=== PATIENT | female | born 1930 | race Caucasian/White ===

== ENCOUNTER 2016-08-14 10:54 | Emergency (ER) | payer MEDICARE ==
[2016-08-14 11:02] VITALS: RESP 18
--- NOTE | 2016-08-14 11:29 | ED ---
Fever HPI - General Chief Complaint: Fever Stated Complaint: Flu like Symtoms/Diareah Time Seen by Provider: 08/14/16 11:04 Source: patient, RN notes reviewed Mode of arrival: EMS Limitations: no limitations - History of Present Illness Initial Comments: This patient is an 85-year-old woman sent in to be evaluated for fever and diarrhea. The patient states that this morning she had an episode of very watery diarrhea. She also had an episode 2 days ago. She is denying nausea, vomiting, abdominal pain. Patient is also denying any other symptoms, and states that she is feeling okay. At the moment she denies feeling fever or chills. MD Complaint: fever Onset/Timin -: hour(s) Temperature Source: subjective - Related Data Home Medications Medication Instructions Recorded Confirmed Carbidopa-Levodopa 25-100 mg 1 tab PO QID 10/26/14 08/14/16 [Sinemet 25-100] Primidone [Mysoline] 50 mg PO TID@0800,1300,1800 10/26/14 08/14/16 Acetaminophen Tab [Tylenol Tab] 325 mg PO Q6H PRN 08/14/16 08/14/16 Atenolol [Tenormin] 25 mg PO DAILY 08/14/16 08/14/16 Cholecalciferol [Vitamin D3] 2,000 unit PO DAILY 08/14/16 08/14/16 Ciprofloxacin HCl [Cipro] 500 mg PO Q12HR 08/14/16 08/14/16 Cyanocobalamin [Vitamin B-12] 1,000 mcg PO DAILY 08/14/16 08/14/16 Desonide [Desowen] 1 applic TOPICAL HS PRN 08/14/16 08/14/16 FLUoxetine HCL [PROzac] 80 mg PO HS 08/14/16 08/14/16 LORazepam [Ativan] 0.25 mg PO BID PRN 08/14/16 08/14/16 Omeprazole 20 mg PO BID 08/14/16 08/14/16 Potassium Chloride [Klor-Con 20] 20 meq PO DAILY 08/14/16 08/14/16 busPIRone HCL [Buspar] 7.5 mg PO BID 08/14/16 08/14/16 Previous Rx's Medication Instructions Recorded Oseltamivir [Tamiflu] 75 mg PO Q12HR #10 cap 08/14/16 Allergies Allergy/AdvReac Type Severity Reaction Status Date / Time Penicillins Allergy Rash/Hives Verified 08/14/16 11:02 Review of Systems ROS Statement: Those systems with pertinent positive or pertinent negative responses have been documented in the HPI. ROS Other: All systems not noted in ROS Statement are negative. Constitutional: Reports: as per HPI, fever. Denies: chills Respiratory: Denies: cough, dyspnea Cardiovascular: Denies: chest pain, orthopnea, syncope Gastrointestinal: Reports: diarrhea. Denies: abdominal pain, nausea, vomiting, constipation, melena, hematochezia Genitourinary: Denies: dysuria Musculoskeletal: Denies: back pain Skin: Denies: rash Neurological: Denies: headache Past Medical History Past Medical History: GERD/Reflux, Hypertension, Neurologic Disorder Additional Past Medical History / Comment(s): PARKINSON'S, ULCER, [place] & [place] History of Any Multi-Drug Resistant Organisms: MRSA Date of last positivie culture/infection: 03/28/15 MDRO Source:: Abdomen Past Surgical History: Hysterectomy Additional Past Surgical History / Comment(s): GOITER REMOVED, BASAL CELL CANCER REMOVED FROM MOUTH ON TUESDAY Past Anesthesia/Blood Transfusion Reactions: No Reported Reaction Past Psychological History: Anxiety, Depression Smoking Status: Former smoker Past Alcohol Use History: None Reported Past Drug Use History: None Reported General Exam Limitations: no limitations General appearance: alert, in no apparent distress Head exam: Present: atraumatic, normocephalic Eye exam: Present: normal appearance. Absent: scleral icterus, conjunctival injection ENT exam: Present: mucous membranes dry Neck exam: Present: normal inspection, full ROM. Absent: meningismus Respiratory exam: Present: normal lung sounds bilaterally. Absent: respiratory distress, wheezes, rales, rhonchi, stridor Cardiovascular Exam: Present: regular rate, normal rhythm, normal heart sounds. Absent: systolic murmur, diastolic murmur, rubs, gallop GI/Abdominal exam: Present: soft. Absent: distended, tenderness, guarding, rebound, mass Extremities exam: Present: normal inspection, normal capillary refill. Absent: pedal edema, calf tenderness Neurological exam: Present: alert Skin exam: Present: warm, dry, intact, normal color. Absent: rash Course Vital Signs 08/14/16 08/14/16 10:58 13:26 Temperature 100.4 F H 98.6 F Pulse Rate 81 75 Respiratory 18 18 Rate Blood Pressure 189/100 154/72 O2 Sat by Pulse 98 99 Oximetry Medical Decision Making - Medical Decision Making Patient is an 85-year-old woman with fever, found to have influenza. At this point her course appears uncomplicated and she is stable for outpatient care. The patient does have close care at the [facility] home, and will return should there be any change in her status. - Lab Data Result diagrams: 08/14/16 11:00 08/14/16 11:00 Lab Results 08/14/16 08/14/16 08/14/16 Range/Units 11:00 11:00 11:00 WBC 4.7 (3.8-10.6) k/uL RBC 4.07 (3.80-5.40) m/uL Hgb 11.5 (11.4-16.0) gm/dL Hct 35.6 (34.0-46.0) % MCV 87.3 (80.0-100.0) fL MCH 28.2 (25.0-35.0) pg MCHC 32.3 (31.0-37.0) g/dL RDW 12.9 (11.5-15.5) % Plt Count 224 (150-450) k/uL Neutrophils % 70 % Lymphocytes % 18 % Monocytes % 8 % Eosinophils % 0 % Basophils % 0 % Neutrophils # 3.3 (1.3-7.7) k/uL Lymphocytes # 0.8 L (1.0-4.8) k/uL Monocytes # 0.4 (0-1.0) k/uL Eosinophils # 0.0 (0-0.7) k/uL Basophils # 0.0 (0-0.2) k/uL PT (9.0-12.0) sec INR (<1.1) APTT (22.0-30.0) sec Sodium 139 (137-145) mmol/L Potassium 3.6 (3.5-5.1) mmol/L Chloride 103 (98-107) mmol/L Carbon Dioxide 26 (22-30) mmol/L Anion Gap 10 mmol/L BUN 18 H (7-17) mg/dL Creatinine 0.50 L (0.52-1.04) mg/dL Est GFR (MDRD) Af Amer >60 (>60 ml/min/1.73 sqM) Est GFR (MDRD) Non-Af >60 (>60 ml/min/1.73 sqM) Glucose 93 (74-99) mg/dL Plasma Lactic Acid Manuel (0.7-2.0) mmol/L Calcium 8.1 L (8.4-10.2) mg/dL Total Bilirubin 0.3 (0.2-1.3) mg/dL AST 84 H (14-36) U/L ALT 90 H (9-52) U/L Alkaline Phosphatase 100 (38-126) U/L Total Creatine Kinase 113 (30-135) U/L CK-MB (CK-2) 0.8 (0.0-2.4) ng/mL CK-MB (CK-2) Rel Index 0.7 Troponin I <0.012 (0.000-0.034) ng/mL Total Protein 6.5 (6.3-8.2) g/dL Albumin 3.7 (3.5-5.0) g/dL Cortisol 18 ug/dL Urine Color Urine Appearance (Clear) Urine pH (5.0-8.0) Ur Specific [place] (1.001-1.035) Urine Protein (Negative) Urine Glucose (UA) (Negative) Urine Ketones (Negative) Urine Blood (Negative) Urine Nitrate (Negative) Urine Bilirubin (Negative) Urine Urobilinogen (<2.0) mg/dL Ur Leukocyte Esterase (Negative) Influenza Type A RNA (Not Detectd) Influenza Type B (PCR) (Not Detectd) 08/14/16 08/14/16 08/14/16 Range/Units 11:00 11:00 11:00 WBC (3.8-10.6) k/uL RBC (3.80-5.40) m/uL Hgb (11.4-16.0) gm/dL Hct (34.0-46.0) % MCV (80.0-100.0) fL MCH (25.0-35.0) pg MCHC (31.0-37.0) g/dL RDW (11.5-15.5) % Plt Count (150-450) k/uL Neutrophils % % Lymphocytes % % Monocytes % % Eosinophils % % Basophils % % Neutrophils # (1.3-7.7) k/uL Lymphocytes # (1.0-4.8) k/uL Monocytes # (0-1.0) k/uL Eosinophils # (0-0.7) k/uL Basophils # (0-0.2) k/uL PT 10.3 (9.0-12.0) sec INR 1.0 (<1.1) APTT 24.0 (22.0-30.0) sec Sodium (137-145) mmol/L Potassium (3.5-5.1) mmol/L Chloride (98-107) mmol/L Carbon Dioxide (22-30) mmol/L Anion Gap mmol/L BUN (7-17) mg/dL Creatinine (0.52-1.04) mg/dL Est GFR (MDRD) Af Amer (>60 ml/min/1.73 sqM) Est GFR (MDRD) Non-Af (>60 ml/min/1.73 sqM) Glucose (74-99) mg/dL Plasma Lactic Acid Manuel 1.2 (0.7-2.0) mmol/L Calcium (8.4-10.2) mg/dL Total Bilirubin (0.2-1.3) mg/dL AST (14-36) U/L ALT (9-52) U/L Alkaline Phosphatase (38-126) U/L Total Creatine Kinase (30-135) U/L CK-MB (CK-2) (0.0-2.4) ng/mL CK-MB (CK-2) Rel Index Troponin I (0.000-0.034) ng/mL Total Protein (6.3-8.2) g/dL Albumin (3.5-5.0) g/dL Cortisol ug/dL Urine Color Urine Appearance (Clear) Urine pH (5.0-8.0) Ur Specific [place] (1.001-1.035) Urine Protein (Negative) Urine Glucose (UA) (Negative) Urine Ketones (Negative) Urine Blood (Negative) Urine Nitrate (Negative) Urine Bilirubin (Negative) Urine Urobilinogen (<2.0) mg/dL Ur Leukocyte Esterase (Negative) Influenza Type A RNA Detected H (Not Detectd) Influenza Type B (PCR) Not Detected (Not Detectd) 08/14/16 Range/Units 11:00 WBC (3.8-10.6) k/uL RBC (3.80-5.40) m/uL Hgb (11.4-16.0) gm/dL Hct (34.0-46.0) % MCV (80.0-100.0) fL MCH (25.0-35.0) pg MCHC (31.0-37.0) g/dL RDW (11.5-15.5) % Plt Count (150-450) k/uL Neutrophils % % Lymphocytes % % Monocytes % % Eosinophils % % Basophils % % Neutrophils # (1.3-7.7) k/uL Lymphocytes # (1.0-4.8) k/uL Monocytes # (0-1.0) k/uL Eosinophils # (0-0.7) k/uL Basophils # (0-0.2) k/uL PT (9.0-12.0) sec INR (<1.1) APTT (22.0-30.0) sec Sodium (137-145) mmol/L Potassium (3.5-5.1) mmol/L Chloride (98-107) mmol/L Carbon Dioxide (22-30) mmol/L Anion Gap mmol/L BUN (7-17) mg/dL Creatinine (0.52-1.04) mg/dL Est GFR (MDRD) Af Amer (>60 ml/min/1.73 sqM) Est GFR (MDRD) Non-Af (>60 ml/min/1.73 sqM) Glucose (74-99) mg/dL Plasma Lactic Acid Manuel (0.7-2.0) mmol/L Calcium (8.4-10.2) mg/dL Total Bilirubin (0.2-1.3) mg/dL AST (14-36) U/L ALT (9-52) U/L Alkaline Phosphatase (38-126) U/L Total Creatine Kinase (30-135) U/L CK-MB (CK-2) (0.0-2.4) ng/mL CK-MB (CK-2) Rel Index Troponin I (0.000-0.034) ng/mL Total Protein (6.3-8.2) g/dL Albumin (3.5-5.0) g/dL Cortisol ug/dL Urine Color Yellow Urine Appearance Clear (Clear) Urine pH 6.0 (5.0-8.0) Ur Specific [place] 1.015 (1.001-1.035) Urine Protein Trace H (Negative) Urine Glucose (UA) Negative (Negative) Urine Ketones Negative (Negative) Urine Blood Negative (Negative) Urine Nitrate Negative (Negative) Urine Bilirubin Negative (Negative) Urine Urobilinogen <2.0 (<2.0) mg/dL Ur Leukocyte Esterase Negative (Negative) Influenza Type A RNA (Not Detectd) Influenza Type B (PCR) (Not Detectd) - EKG Data -: EKG Interpreted by Vt EKG shows normal: axis (Normal), intervals (Normal) Rate: normal Interpretation: nonspecific ST-T wave changes, other (The underlying rhythm appears to be atrial fibrillation with a rate approximately 85 bpm) Disposition Clinical Impression: Influenza Disposition: HOME SELF-CARE Condition: Fair Instructions: Fever in Adults (ED), Influenza (ED) Prescriptions: Oseltamivir [Tamiflu] 75 mg PO Q12HR #10 cap Referrals: Zackery Martinez MD [Primary Care Provider] - 1-2 days
[2016-08-14 11:36] LABS: Basophils % (A) 0 %; CH 28.4; CHCM 32.6; Eosinophils % (A) 0 %; HCT 35.6 % (34.0-46.0); HDW 2.59; HGB 11.5 gm/dL (11.4-16.0); Luc # (Auto) 0.18; Luc % (Auto) 4; Lymphocytes # (A) 0.8 k/uL (1.0-4.8); Lymphocytes % (A) 18 %; MCH 28.2 pg (25.0-35.0); MCHC 32.3 g/dL (31.0-37.0); MCV 87.3 fL (80.0-100.0); Mean Platelet Volume 6.6; Monocytes # (A) 0.4 k/uL (0-1.0); Monocytes % (A) 8 %; Neutrophils # (A) 3.3 k/uL (1.3-7.7); Neutrophils % (A) 70 %; RBC 4.07 m/uL (3.80-5.40); RDW 12.9 % (11.5-15.5); WBC 4.7 k/uL (3.8-10.6); WBC (Perox) 4.74
[2016-08-14 11:37] LABS: Appearance,Urine Clear (Clear); Bilirubin,Urine Negative (Negative); Glucose,Urine (UA) Negative (Negative); Ketones,Urine Negative (Negative); Leukocyte Esterase,Urine Negative (Negative); Nitrite,Urine Negative (Negative); Protein,Urine Trace (Negative); Specific Gravity,Urine 1.015 (1.001-1.035); UA Billing (MACRO vs. MICRO) CHEM; Urobilinogen,Urine <2.0 mg/dL (<2.0)
[2016-08-14 11:52] LABS: Prothrombin Time 10.3 sec (9.0-12.0)
[2016-08-14 11:56] LABS: ALT 90 U/L (9-52); AST 84 U/L (14-36); Alkaline Phosphatase 100 U/L (38-126); Anion Gap 10 mmol/L; Blood Urea Nitrogen 18 mg/dL (7-17); Calcium 8.1 mg/dL (8.4-10.2); Carbon Dioxide 26 mmol/L (22-30); Chloride 103 mmol/L (98-107); Glucose 93 mg/dL (74-99); Non-African American GFR(MDRD) >60 (>60 ml/min/1.73 sqM); Potassium 3.6 mmol/L (3.5-5.1); Sodium 139 mmol/L (137-145); Total Bilirubin 0.3 mg/dL (0.2-1.3); Total Protein 6.5 g/dL (6.3-8.2)
[2016-08-14 12:08] LABS: Creatine Kinase 113 U/L (30-135)
--- NOTE | 2016-08-14 12:13 | XR ---
EXAMINATION TYPE: XR chest 1V portable DATE OF EXAM: 08/14/2016 12:07 PM COMPARISON: 10/31/2015 HISTORY: Fever TECHNIQUE: Single frontal view of the chest is obtained. FINDINGS: The heart is enlarged. There is no evidence of focal pneumonia. Pleural calcifications are noted. Atherosclerotic change aorta. Underlying COPD suspected. IMPRESSION: 1. Cardiomegaly and COPD with no definite acute process.
[2016-08-14 12:21] LABS: Creatine Kinase MB 0.8 ng/mL (0.0-2.4); Troponin I <0.012 ng/mL (0.000-0.034)
[2016-08-14] MEDS ORDERED: OSELTAMIVIR 75 MG CAP PO STA (13:16)
[2016-08-14] MEDS ORDERED: ACETAMINOPHEN TAB 325 MG TAB PO STA (13:16)
[2016-08-14 13:27] VITALS: BP 154/72; PULSE 75; TEMP 98.6
== END 2016-08-14 13:30 | disposition home or self-care (01) ==
LOC: EC 10:54
DX: J11.1 Influenza due to unidentified influenza virus with other respiratory manifestations (principal); G20 Parkinson's disease; I10 Essential (primary) hypertension; K21.9 Gastro-esophageal reflux disease without esophagitis; F41.9 Anxiety disorder, unspecified; F32.9 Major depressive disorder, single episode, unspecified; Z86.14 Personal history of Methicillin resistant Staphylococcus aureus infection; Z79.899 Other long term (current) drug therapy; Z88.0 Allergy status to penicillin; Z87.891 Personal history of nicotine dependence
CPT/HCPCS: 36415; 71010; 80053; 81003; 82533; 82550; 82553; 83605; 84484; 85025; 85610; 85730; 87040; 87086; 87502; 93005; 99284

== ENCOUNTER 2016-11-12 23:00 | Inpatient (IN) | payer MEDICARE ==
[2016-11-12 23:36] LABS: Basophils % (A) 0 %; CH 26.5; Eosinophils % (A) 0 %; HCT 29.3 % (34.0-46.0); HDW 2.76; HGB 9.1 gm/dL (11.4-16.0); Hypochromasia Slight; Luc # (Auto) 0.11; Luc % (Auto) 1; Lymphocytes # (A) 0.4 k/uL (1.0-4.8); Lymphocytes % (A) 3 %; MCH 26.6 pg (25.0-35.0); MCHC 30.9 g/dL (31.0-37.0); Mean Platelet Volume 6.6; Monocytes # (A) 0.7 k/uL (0-1.0); Monocytes % (A) 5 %; Neutrophils # (A) 11.9 k/uL (1.3-7.7); Neutrophils % (A) 91 %; RBC 3.41 m/uL (3.80-5.40); RDW 15.8 % (11.5-15.5); WBC 13.1 k/uL (3.8-10.6); WBC (Perox) 13.09
[2016-11-12 23:46] LABS: ALT 38 U/L (9-52); AST 151 U/L (14-36); Alkaline Phosphatase 121 U/L (38-126); Anion Gap 12 mmol/L; Blood Urea Nitrogen 38 mg/dL (7-17); Calcium 8.4 mg/dL (8.4-10.2); Carbon Dioxide 20 mmol/L (22-30); Chloride 107 mmol/L (98-107); Glucose 153 mg/dL (74-99); Non-African American GFR(MDRD) >60 (>60 ml/min/1.73 sqM); Potassium 4.3 mmol/L (3.5-5.1); Sodium 139 mmol/L (137-145); Total Bilirubin 0.6 mg/dL (0.2-1.3); Total Protein 6.3 g/dL (6.3-8.2)
[2016-11-13] LABS: VBG PH 7.35 (7.31-7.41)
--- NOTE | 2016-11-13 00:03 | XR ---
EXAM: XR Chest, 1 View CLINICAL HISTORY: Dyspnea. TECHNIQUE: Frontal view of the chest. COMPARISON: CXR dated 08/14/2016. FINDINGS: Lungs: Extensive patchy bilateral airspace opacities, new compared to prior CXR. Calcifications of the lung apices, stable. Pleural space: Blunting of the left costophrenic angle may represent small left pleural effusion. No pneumothorax. Heart: Mildly enlarged cardiac silhouette. Mediastinum: Atherosclerosis at the aortic arch. Bones/joints: Stable osseous structures. IMPRESSION: 1. Bilateral airspace opacities, new compared to prior CXR. Findings may represent pulmonary edema, multifocal pneumonia, ARDS or other etiology. Recommend clinical correlation and follow-up imaging. 2. Mildly enlarged cardiac silhouette. 3. Possible small left pleural effusion.
[2016-11-13 00:10] LABS: INR 1.2 (<1.1); Prothrombin Time 11.7 sec (9.0-12.0)
[2016-11-13 00:31] LABS: Appearance,Urine Clear (Clear); Bilirubin,Urine Negative (Negative); Glucose,Urine (UA) Negative (Negative); Ketones,Urine 1+ (Negative); Leukocyte Esterase,Urine Negative (Negative); Nitrite,Urine Negative (Negative); Particle Count 4079; Protein,Urine 1+ (Negative); RBC,Urine 1 /hpf (0-5); Specific Gravity,Urine 1.022 (1.001-1.035); Squamous Epithelial Cell,Urine <1 /hpf (0-4); UA Billing (MACRO vs. MICRO) MICRO; Urobilinogen,Urine <2.0 mg/dL (<2.0); WBC,Urine 1 /hpf (0-5)
[2016-11-13] MEDS ORDERED: LEVOFLOXACIN 750MG-D5W PMX 750 MG in DEXTROSE/WATER 1 150ML.BAG IVPB STA (01:24)
[2016-11-13] MEDS ORDERED: MORPHINE SULFATE 4 MG/ML SYRINGE IV STA ×2 (01:40→04:15)
[2016-11-13] MEDS ORDERED: NITROGLYCERIN-D5W PMX 50 MG in DEXTROSE/WATER 1 250ML.BAG IV STA (01:44)
[2016-11-13] MEDS ORDERED: FUROSEMIDE 10 MG/ML 4 ML VIAL IV STA (04:36)
[2016-11-13] MEDS ORDERED: NITROGLYCERIN-D5W PMX 50 MG in DEXTROSE/WATER 1 250ML.BAG IV ONE (04:43)
[2016-11-13] MEDS ORDERED: NALOXONE 0.4 MG/ML 1 ML VIAL IV PRN (04:57)
[2016-11-13] MEDS ORDERED: MORPHINE SULFATE 4 MG/ML SYRINGE IV PRN (04:57)
--- NOTE | 2016-11-13 04:57 | ED ---
SOB HPI - General Chief Complaint: Shortness of Breath Stated Complaint: ELBERT Time Seen by Provider: 11/12/16 23:03 Source: EMS Mode of arrival: EMS Limitations: altered mental status, physical limitation - History of Present Illness Initial Comments: This patient is an 85-year-old woman brought from [facility] home to be evaluated for dyspnea. EMS states they were called to the home and informed that the patient was having shortness of breath due to being treated for urinary tract infection. This is been getting worse over the course of tonight. On arrival he patient is not able to provide much history due to dyspnea. She was able to state that she was not having any pains. MD Complaint: shortness of breath -: unknown Consistency: constant Improves With: nothing Worsens With: nothing Treatments Prior to Arrival: oxygen, NIPPV - Related Data Home Medications Medication Instructions Recorded Confirmed Carbidopa-Levodopa 25-100 mg 1 tab PO QID 10/26/14 11/12/16 [Sinemet 25-100] Primidone [Mysoline] 50 mg PO TID@0800,1300,1800 10/26/14 11/12/16 Acetaminophen Tab [Tylenol Tab] 325 mg PO Q6H PRN 08/14/16 11/12/16 Atenolol [Tenormin] 25 mg PO DAILY 08/14/16 11/12/16 Cholecalciferol [Vitamin D3] 2,000 unit PO DAILY 08/14/16 11/12/16 FLUoxetine HCL [PROzac] 80 mg PO HS 08/14/16 11/12/16 Omeprazole 20 mg PO BID@0800,1800 08/14/16 11/12/16 Potassium Chloride [Klor-Con 20] 20 meq PO DAILY 08/14/16 11/12/16 busPIRone HCL [Buspar] 7.5 mg PO BID@0800,1800 08/14/16 11/12/16 Cyanocobalamin (Vitamin B-12) 1,000 mcg PO DAILY 11/12/16 11/12/16 [Vitamin B-12] Allergies Allergy/AdvReac Type Severity Reaction Status Date / Time Penicillins Allergy Rash/Hives Verified 08/14/16 11:02 Review of Systems ROS Statement: Those systems with pertinent positive or pertinent negative responses have been documented in the HPI. ROS Other: All systems not noted in ROS Statement are negative. Limitations: ROS unobtainable due to patients medical condition Respiratory: Reports: dyspnea Cardiovascular: Denies: chest pain Gastrointestinal: Denies: abdominal pain Past Medical History Past Medical History: GERD/Reflux, Hypertension, Neurologic Disorder Additional Past Medical History / Comment(s): PARKINSON'S, ULCER, [place] History of Any Multi-Drug Resistant Organisms: MRSA Date of last positivie culture/infection: 03/28/15 MDRO Source:: Abdomen Past Surgical History: Hysterectomy Additional Past Surgical History / Comment(s): GOITER REMOVED, BASAL CELL CANCER REMOVED FROM MOUTH ON TUESDAY Past Anesthesia/Blood Transfusion Reactions: No Reported Reaction Past Psychological History: Anxiety, Depression Smoking Status: Former smoker Past Alcohol Use History: None Reported Past Drug Use History: None Reported - Past Family History Mother Family Medical History: No Reported History General Exam Limitations: no limitations General appearance: alert, in distress Head exam: Present: atraumatic, normocephalic Eye exam: Present: normal appearance. Absent: scleral icterus, conjunctival injection Neck exam: Present: full ROM Respiratory exam: Present: respiratory distress, rales, rhonchi, accessory muscle use. Absent: wheezes, stridor, decreased breath sounds Cardiovascular Exam: Present: regular rate, normal rhythm, systolic murmur. Absent: diastolic murmur, rubs, gallop GI/Abdominal exam: Present: soft. Absent: tenderness, guarding, rebound Extremities exam: Present: normal inspection, normal capillary refill. Absent: pedal edema, calf tenderness Back exam: Present: normal inspection. Absent: CVA tenderness (R), CVA tenderness (L) Neurological exam: Present: alert Psychiatric exam: Present: anxious Skin exam: Present: warm, intact, diaphoretic, mottled. Absent: rash Course Vital Signs 11/12/16 11/13/16 11/13/16 23:03 00:06 00:16 Temperature 97.2 F L 97.2 F L Pulse Rate 93 92 87 Respiratory 40 H 38 H 40 H Rate Blood Pressure 160/83 186/100 187/91 O2 Sat by Pulse 100 96 95 Oximetry 11/13/16 11/13/16 11/13/16 01:14 01:48 01:58 Temperature Pulse Rate 88 93 85 Respiratory 48 H 45 H 45 H Rate Blood Pressure 184/89 163/90 158/73 O2 Sat by Pulse 92 L 93 L 92 L Oximetry 11/13/16 11/13/16 11/13/16 02:35 03:28 04:30 Temperature Pulse Rate 89 93 95 Respiratory 40 H 45 H 40 H Rate Blood Pressure 176/82 176/97 175/81 O2 Sat by Pulse 92 L 92 L 92 L Oximetry 11/13/16 11/13/16 11/13/16 05:11 05:27 05:35 Temperature Pulse Rate 92 98 96 Respiratory 40 H 40 H 40 H Rate Blood Pressure 173/77 175/75 141/72 O2 Sat by Pulse 90 L 90 L 91 L Oximetry 11/13/16 11/13/16 11/13/16 05:39 05:43 05:47 Temperature Pulse Rate 94 94 94 Respiratory 40 H 40 H 40 H Rate Blood Pressure 143/79 134/79 136/79 O2 Sat by Pulse 93 L 93 L 91 L Oximetry 11/13/16 11/13/16 05:51 06:13 Temperature Pulse Rate 98 97 Respiratory 40 H 40 H Rate Blood Pressure 145/87 139/64 O2 Sat by Pulse 89 L 95 Oximetry Medical Decision Making - Medical Decision Making Patient is an 85-year-old woman brought from [facility] home for severe respiratory distress. The patient is coming by paperwork that state that she is basically a no code with the exception that she would want pressor drugs. On arrival the patient does appear to be in respiratory distress bordering on respiratory failure, and if she had full CODE STATUS would have been intubated on arrival. She is changed over from the CPAP brought by EMS to the BiPAP here, and the sats did improve from 70s up to just over 90. From auscultation of the chest x- ray, it appears the patient is in hypertensive emergency with CHF. Patient is given nitroglycerin which has improved blood pressure. Patient also started on antibiotics as it's not possible to exclude pneumonia based on the appearance of the chest x-ray. Patient does have lactic acidosis on arrival. - Lab Data Result diagrams: 11/12/16 23:23 11/12/16 23:23 Lab Results 11/12/16 11/12/16 11/12/16 Range/Units 23:23 23:23 23:23 WBC 13.1 H (3.8-10.6) k/uL RBC 3.41 L (3.80-5.40) m/uL Hgb 9.1 L (11.4-16.0) gm/dL Hct 29.3 L (34.0-46.0) % MCV 86.0 (80.0-100.0) fL MCH 26.6 (25.0-35.0) pg MCHC 30.9 L (31.0-37.0) g/dL RDW 15.8 H (11.5-15.5) % Plt Count 361 (150-450) k/uL Neutrophils % 91 % Lymphocytes % 3 % Monocytes % 5 % Eosinophils % 0 % Basophils % 0 % Neutrophils # 11.9 H (1.3-7.7) k/uL Lymphocytes # 0.4 L (1.0-4.8) k/uL Monocytes # 0.7 (0-1.0) k/uL Eosinophils # 0.0 (0-0.7) k/uL Basophils # 0.0 (0-0.2) k/uL Hypochromasia Slight PT (9.0-12.0) sec INR (<1.1) APTT (22.0-30.0) sec VBG pH (7.31-7.41) VBG pCO2 (37-51) mmHg VBG HCO3 (24-28) mmol/L Sodium 139 (137-145) mmol/L Potassium 4.3 (3.5-5.1) mmol/L Chloride 107 (98-107) mmol/L Carbon Dioxide 20 L (22-30) mmol/L Anion Gap 12 mmol/L BUN 38 H (7-17) mg/dL Creatinine 0.60 (0.52-1.04) mg/dL Est GFR (MDRD) Af Amer >60 (>60 ml/min/1.73 sqM) Est GFR (MDRD) Non-Af >60 (>60 ml/min/1.73 sqM) Glucose 153 H (74-99) mg/dL Plasma Lactic Acid Manuel 3.1 H* (0.7-2.0) mmol/L Calcium 8.4 (8.4-10.2) mg/dL Total Bilirubin 0.6 (0.2-1.3) mg/dL AST 151 H (14-36) U/L ALT 38 (9-52) U/L Alkaline Phosphatase 121 (38-126) U/L Troponin I (0.000-0.034) ng/mL Total Protein 6.3 (6.3-8.2) g/dL Albumin 3.3 L (3.5-5.0) g/dL Urine Color Urine Appearance (Clear) Urine pH (5.0-8.0) Ur Specific [place] (1.001-1.035) Urine Protein (Negative) Urine Glucose (UA) (Negative) Urine Ketones (Negative) Urine Blood (Negative) Urine Nitrite (Negative) Urine Bilirubin (Negative) Urine Urobilinogen (<2.0) mg/dL Ur Leukocyte Esterase (Negative) Urine RBC (0-5) /hpf Urine WBC (0-5) /hpf Ur Squamous Epith Cells (0-4) /hpf 11/12/16 11/12/16 11/12/16 Range/Units 23:23 23:23 23:52 WBC (3.8-10.6) k/uL RBC (3.80-5.40) m/uL Hgb (11.4-16.0) gm/dL Hct (34.0-46.0) % MCV (80.0-100.0) fL MCH (25.0-35.0) pg MCHC (31.0-37.0) g/dL RDW (11.5-15.5) % Plt Count (150-450) k/uL Neutrophils % % Lymphocytes % % Monocytes % % Eosinophils % % Basophils % % Neutrophils # (1.3-7.7) k/uL Lymphocytes # (1.0-4.8) k/uL Monocytes # (0-1.0) k/uL Eosinophils # (0-0.7) k/uL Basophils # (0-0.2) k/uL Hypochromasia PT 11.7 (9.0-12.0) sec INR 1.2 (<1.1) APTT 21.0 L (22.0-30.0) sec VBG pH 7.35 (7.31-7.41) VBG pCO2 37 (37-51) mmHg VBG HCO3 20 L (24-28) mmol/L Sodium (137-145) mmol/L Potassium (3.5-5.1) mmol/L Chloride (98-107) mmol/L Carbon Dioxide (22-30) mmol/L Anion Gap mmol/L BUN (7-17) mg/dL Creatinine (0.52-1.04) mg/dL Est GFR (MDRD) Af Amer (>60 ml/min/1.73 sqM) Est GFR (MDRD) Non-Af (>60 ml/min/1.73 sqM) Glucose (74-99) mg/dL Plasma Lactic Acid Manuel (0.7-2.0) mmol/L Calcium (8.4-10.2) mg/dL Total Bilirubin (0.2-1.3) mg/dL AST (14-36) U/L ALT (9-52) U/L Alkaline Phosphatase (38-126) U/L Troponin I <0.012 (0.000-0.034) ng/mL Total Protein (6.3-8.2) g/dL Albumin (3.5-5.0) g/dL Urine Color Urine Appearance (Clear) Urine pH (5.0-8.0) Ur Specific [place] (1.001-1.035) Urine Protein (Negative) Urine Glucose (UA) (Negative) Urine Ketones (Negative) Urine Blood (Negative) Urine Nitrite (Negative) Urine Bilirubin (Negative) Urine Urobilinogen (<2.0) mg/dL Ur Leukocyte Esterase (Negative) Urine RBC (0-5) /hpf Urine WBC (0-5) /hpf Ur Squamous Epith Cells (0-4) /hpf 11/13/16 11/13/16 Range/Units 00:03 03:19 WBC (3.8-10.6) k/uL RBC (3.80-5.40) m/uL Hgb (11.4-16.0) gm/dL Hct (34.0-46.0) % MCV (80.0-100.0) fL MCH (25.0-35.0) pg MCHC (31.0-37.0) g/dL RDW (11.5-15.5) % Plt Count (150-450) k/uL Neutrophils % % Lymphocytes % % Monocytes % % Eosinophils % % Basophils % % Neutrophils # (1.3-7.7) k/uL Lymphocytes # (1.0-4.8) k/uL Monocytes # (0-1.0) k/uL Eosinophils # (0-0.7) k/uL Basophils # (0-0.2) k/uL Hypochromasia PT (9.0-12.0) sec INR (<1.1) APTT (22.0-30.0) sec VBG pH (7.31-7.41) VBG pCO2 (37-51) mmHg VBG HCO3 (24-28) mmol/L Sodium (137-145) mmol/L Potassium (3.5-5.1) mmol/L Chloride (98-107) mmol/L Carbon Dioxide (22-30) mmol/L Anion Gap mmol/L BUN (7-17) mg/dL Creatinine (0.52-1.04) mg/dL Est GFR (MDRD) Af Amer (>60 ml/min/1.73 sqM) Est GFR (MDRD) Non-Af (>60 ml/min/1.73 sqM) Glucose (74-99) mg/dL Plasma Lactic Acid Manuel 1.7 (0.7-2.0) mmol/L Calcium (8.4-10.2) mg/dL Total Bilirubin (0.2-1.3) mg/dL AST (14-36) U/L ALT (9-52) U/L Alkaline Phosphatase (38-126) U/L Troponin I (0.000-0.034) ng/mL Total Protein (6.3-8.2) g/dL Albumin (3.5-5.0) g/dL Urine Color Yellow Urine Appearance Clear (Clear) Urine pH 6.0 (5.0-8.0) Ur Specific [place] 1.022 (1.001-1.035) Urine Protein 1+ H (Negative) Urine Glucose (UA) Negative (Negative) Urine Ketones 1+ H (Negative) Urine Blood Negative (Negative) Urine Nitrite Negative (Negative) Urine Bilirubin Negative (Negative) Urine Urobilinogen <2.0 (<2.0) mg/dL Ur Leukocyte Esterase Negative (Negative) Urine RBC 1 (0-5) /hpf Urine WBC 1 (0-5) /hpf Ur Squamous Epith Cells <1 (0-4) /hpf - EKG Data -: EKG Interpreted by [place] EKG shows normal: sinus rhythm, axis (Normal), intervals (The QTc is prolonged at 528 ms, the other intervals are normal.), QRS complexes (Normal) Rate: normal (Rate 91 bpm) Interpretation: nonspecific ST-T wave changes Disposition Clinical Impression: Congestive heart failure, Acute pulmonary edema, Lactic acidosis, Acute respiratory failure Narrative: Possible pneumonia Disposition: ADMITTED IP TO THIS HOSP Condition: Critical
[2016-11-13 07:13] LABS: Glucose,Whole Blood 147 mg/dL (75-99)
[2016-11-13 08:13] VITALS: TEMP 96.8
[2016-11-13] MEDS ORDERED: FAMOTIDINE 20 MG/2 ML VIAL IV SCH (09:00)
[2016-11-13] MEDS ORDERED: HEPARIN SODIUM,PORCINE 5,000 UNIT/ML 1 ML VIAL SQ SCH (09:00)
[2016-11-13] MEDS ORDERED: MORPHINE SULFATE 2 MG/ML SYRINGE ONE (09:16)
[2016-11-13] MEDS ORDERED: MORPHINE SULFATE 2 MG/ML SYRINGE IVP ONE (09:22)
[2016-11-13] MEDS ORDERED: LORazepam 2 MG/ML SYRINGE ONE (09:24)
[2016-11-13] MEDS: LORazepam 2 MG/ML SYRINGE IV PRN ×4 (09:25→14:27)
--- NOTE | 2016-11-13 09:33 | P.CNPUL ---
History of Present Illness Consult date: 11/13/16 Reason for consult: pneumonia History of present illness: 85-year-old female patient, with known history of advanced dementia, advanced Parkinson's disease, a [facility] home resident, was having progressive decline in her performance and functional status, barely able to walk recently. She comes in with acute shortness of breath. The chest x-ray shows diffuse multilobar pneumonia. The patient was progressively getting more short of breath over the past 24-48 hours. Initially the patient was placed on BiPAP and currently the patient on a BiPAP at a pressure of 10 over 5 cm of water and FiO2 100%. She is in the intensive care unit. Family is at the bedside. Despite the BiPAP support, the patient is still anxious, tachypneic, having labored breathing and quite uncomfortable to the point where the patient is trying to pull off her BiPAP mask constantly. The granddaughter to the bedside trying to help her stay calm and comfortable. The patient has a lactic acid of 3.1. Troponin is been negative. He was given a dose of Levaquin in the emergency department. The patient is nonverbal. The patient is struggling with her breathing and she is using accessory muscles of breathing despite being on a BiPAP for respiratory support. She has no significant cough or congestion. She has extensive crackles in both lungs bilaterally. No 69 chronic lung disease. No recent pneumonias. No reported aspiration although this is a concern as mentioned by the family. I had a length discussion with the family at the bedside and 3 of the daughters were present and the youngest daughter has the power of employee relations director. All of the migraine and that she is to be under comfort care measures. I think it's very much reasonable taken account her age, advanced dementia, advanced Parkinson's disease and her wishes of not being intubated or placed on a mechanical ventilator. I think the extent of pneumonia and hypoxemia and the observed clinical state makes me agree on comfort care measures and agreed to the patient's families decisions on her seating with this. I have already given this patient to milligrams of Ativan and further more morphine will be given for agitation and comfort. The BiPAP will be taken at later stage and the patient will be given 100% nonrebreather facemask. Rest of the medication will be all discontinued. Review of Systems ROS unobtainable: due to mental status Past Medical History Past Medical History: GERD/Reflux, Hypertension, Neurologic Disorder Additional Past Medical History / Comment(s): Parkinson's disease, advanced dementia, [facility] home resident, peptic ulcer disease, impaired hearing, very poor performance and functional status him a previous history of UTI a month reflux esophagitis History of Any Multi-Drug Resistant Organisms: MRSA Date of last positivie culture/infection: 03/28/15 MDRO Source:: Abdomen Past Surgical History: Hysterectomy Additional Past Surgical History / Comment(s): Thyroidectomy, 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, hysterectomy, EGD Past Anesthesia/Blood Transfusion Reactions: No Reported Reaction Past Psychological History: Anxiety, Depression Smoking Status: Former smoker Past Alcohol Use History: None Reported Past Drug Use History: None Reported Medications and Allergies Home Medications Medication Instructions Recorded Confirmed Type Carbidopa-Levodopa 25-100 mg 1 tab PO QID 10/26/14 11/12/16 History [Sinemet 25-100] Primidone [Mysoline] 50 mg PO TID@0800,1300,1800 10/26/14 11/12/16 History Acetaminophen Tab [Tylenol Tab] 325 mg PO Q6H PRN 08/14/16 11/12/16 History Atenolol [Tenormin] 25 mg PO DAILY 08/14/16 11/12/16 History Cholecalciferol [Vitamin D3] 2,000 unit PO DAILY 08/14/16 11/12/16 History FLUoxetine HCL [PROzac] 80 mg PO HS 08/14/16 11/12/16 History Omeprazole 20 mg PO BID@0800,1800 08/14/16 11/12/16 History Potassium Chloride [Klor-Con 20] 20 meq PO DAILY 08/14/16 11/12/16 History busPIRone HCL [Buspar] 7.5 mg PO BID@0800,1800 08/14/16 11/12/16 History Cyanocobalamin (Vitamin B-12) 1,000 mcg PO DAILY 11/12/16 11/12/16 History [Vitamin B-12] Allergies Allergy/AdvReac Type Severity Reaction Status Date / Time Penicillins Allergy Rash/Hives Verified 08/14/16 11:02 Physical Exam Vitals: Vital Signs Temp Pulse Resp BP Pulse Ox 11/13/16 08:00 93 49 H 143/76 93 L 11/13/16 07:45 91 34 H 143/76 97 11/13/16 07:30 96 33 H 148/78 94 L 11/13/16 07:15 96.8 F L 92 37 H 148/78 82 L 11/13/16 06:13 97 40 H 139/64 95 11/13/16 05:51 98 40 H 145/87 89 L 11/13/16 05:47 94 40 H 136/79 91 L 11/13/16 05:43 94 40 H 134/79 93 L 11/13/16 05:39 94 40 H 143/79 93 L 11/13/16 05:35 96 40 H 141/72 91 L 11/13/16 05:27 98 40 H 175/75 90 L 11/13/16 05:11 92 40 H 173/77 90 L Intake and Output 11/12/16 11/13/16 11/13/16 22:59 06:59 14:59 Intake Total 20 Output Total 600 Balance -580 Intake: IV 20 0.9 20 Output: Urine 600 Elderly female patient, restless in bed, placed on a full face BiPAP mask. She is quite tachypneic and using accessory muscles of breathing. She moans and tries to move around. No kristyn agitation.Head exam was generally normal. There was no scleral icterus or corneal arcus. Mucous membranes were moist.Neck was supple and without jugular venous distension, thyromegaly, or carotid bruits. Carotids were easily palpable bilaterally. There was no adenopathy. Mucous membranes are dry. Lung sounds are revealing crackles in the mid and lower lung san bilaterally there are quite extensive at this point. No wheezes. Breath sounds are diminished in lung bases.Cardiac exam revealed the PMI to be normally situated and sized. The rhythm was regular and no extrasystoles were noted during several minutes of auscultation. The first and second heart sounds were normal and physiologic splitting of the second heart sound was noted. There were no murmurs, rubs, clicks, or gallops.Abdominal exam revealed normal bowel sounds. The abdomen was soft, non-tender, and without masses, organomegaly , or appreciable enlargement of the abdominal aorta.Examination of the extremities revealed easily palpable radial, femoral and pedal pulses. There was no cyanosis, clubbing or edema. Neurologically the patient has extensive resting tremors, unable to follow any commands or answer any questions. Thrashing around and quite uncomfortable. She is moving all 4 extremities. Reflexes are present. Pupils are equal and symmetrical and there is no facial asymmetry Results - Laboratory Findings CBC and BMP: 11/12/16 23:23 11/12/16 23:23 PT/INR, D-dimer PT 11.7 sec (9.0-12.0) 11/12/16 23:23 INR 1.2 (<1.1) 11/12/16 23:23 Abnormal lab findings: Abnormal Labs 11/13/16 07:11 POC Glucose (mg/dL) 147 H - Diagnostic Findings Chest x-ray: image reviewed Assessment and Plan Plan: Assessment 1 extensive multilobar pneumonia in an elderly 85-year-old here patient with known history of advanced dementia and Parkinson's disease. 2 acute hypoxic respiratory failure secondary to above 3 acute dyspnea and respiratory distress with use of accessory muscles of breathing secondary to above 4 lactic acidosis, mild with lactic acid level of 3.1 5 Parkinson's disease, advanced 6 dementia, advanced 7 significant impairment of the performance and functional status 8 DNR/DNI CODE STATUS Plan Agree on the family's wishes of comfort care measures. I think nothing much we can offer to this patient in terms of treatment that will give her reasonable recovery. Her performance and functional status is poor baseline. I think comfort care measures very reasonable as suggested by the family including the daughter who has the power of employee relations director. The patient will be placed on 100% on a beta facemask in the BiPAP will be discontinued. The patient will be given a combination of Ativan and morphine to control her restlessness, breathlessness, and anxiety. Once today condition is further stabilized, the patient can be moved to a private room for more privacy. The incubator operator will be called for family' s wishes.
[2016-11-13] MEDS ORDERED: SCOPOLAMINE 1.5MG/72HR PATCH TRANSDERM PRN (10:09)
[2016-11-13 10:44] VITALS: BP 86/55
[2016-11-13] MEDS: MORPHINE SULFATE 2 MG/ML SYRINGE IVP PRN ×3 (12:09→14:26)
[2016-11-13 12:33] VITALS: PULSE 82; RESP 16
[2016-11-13] MEDS ORDERED: MORPHINE SULFATE 100 MG in SODIUM CHLORIDE 0.9% 100 ML IV SCH (16:15)
[2016-11-13 17:36] VITALS: BMI 25.7
--- NOTE | 2016-11-13 19:15 | HP ---
H&P and DISCHARGE/ SUMMARY DATE OF ADMISSION: Patient was an 85-year-old female with advanced dementia, probably parkinsonian dementia. She came to the hospital with acute respiratory failure, found to have multi-lobar pneumonia. Patient was on BiPAP. Patient was in ICU initially. Patient had advanced dementia, extremely poor functionality, because of which Dr. Rogers, ICU middle [employer] reading teacher, discussed her overall goals of care. Patient was subsequently made hospice and was transferred to Med/Surg with hospice. I evaluated the patient at that time. Patient was having agonal breathing, because of which the plan was to start on morphine drip, but even before the morphine drip was started, patient . Please refer to nursing documentation for further details of the exact date and time of . REVIEW OF SYSTEMS: Irrelevant at this point of time. PAST MEDICAL HISTORY: 1. Gastroesophageal reflux disease. 2. Hypertension. 3. Parkinson's, parkinsonian dementia. 4. Anxiety. 5. Depression. 6. Former smoker. FAMILY HISTORY: Irrelevant. HOME MEDICATIONS: 1. Carbidopa levodopa. 2. Primidone. 3. Acetaminophen. 4. Atenolol. 5. Cholecalciferol. 6. Fluoxetine. 7. Omeprazole. 8. Potassium chloride. 9. Buspirone. 10. Cyanocobalamin. ALLERGIES: PENICILLIN. PHYSICAL EXAMINATION: She has , but when I evaluated the patient, her vital signs were temperature 96.8, pulse of 82, respiratory rate of 16, blood pressure 86/55. Saturating at 93%. Patient was having agonal breathing, diffuse crackles bilaterally when I examined the patient before her . LABORATORY DATA: Septic. Other lab data irrelevant at this point of time. ASSESSMENT AND PLAN: 1. Severe sepsis due to extensive multi-lobar pneumonia. 2. Acute hypoxic respiratory failure secondary to pneumonia. 3. Lactic acidosis due to severe sepsis. 4. Parkinson's and parkinsonian dementia. PLAN: Patient was made hospice and comfort care. Patient subsequently earlier today. Preliminary cause of is multi-lobar pneumonia, mostly pneumococcal with contributing factor of advanced dementia, mostly parkinsonian dementia.
== END 2016-11-13 18:40 | disposition expired | DRG 871 ==
LOC: EC 23:00 → 6ICU 11-13 05:05 → 5ONC 11-13 12:38
PROVIDERS: ADMIT Hospitalist; ATTEND Hospitalist
PROC: 5A09357 Assistance with Respiratory Ventilation, Less than 24 Consecutive Hours, Continuous Positive Airway Pressure (ICD-10-PCS; principal; 2016-11-13)
DX: A41.9 Sepsis, unspecified organism (principal); J13 Pneumonia due to Streptococcus pneumoniae; J96.01 Acute respiratory failure with hypoxia; I16.1 Hypertensive emergency; I11.0 Hypertensive heart disease with heart failure; G20 Parkinson's disease; I50.9 Heart failure, unspecified; F02.80 Dementia in other diseases classified elsewhere, unspecified severity, without behavioral disturbance, psychotic disturbance, mood disturbance, and anxiety; H91.90 Unspecified hearing loss, unspecified ear; K21.9 Gastro-esophageal reflux disease without esophagitis; R65.20 Severe sepsis without septic shock; F32.9 Major depressive disorder, single episode, unspecified; F41.9 Anxiety disorder, unspecified; Z51.5 Encounter for palliative care; Z66 Do not resuscitate; Z79.899 Other long term (current) drug therapy; Z87.891 Personal history of nicotine dependence; Z85.828 Personal history of other malignant neoplasm of skin; Z88.0 Allergy status to penicillin; Z86.14 Personal history of Methicillin resistant Staphylococcus aureus infection
CPT/HCPCS: 36415; 71010; 80053; 81001; 82803; 83605; 84484; 85025; 85610; 85730; 87040; 87086; 93005; 94660; 96365; 96366; 96367; 96375; 96376; 99285